=== PATIENT | female | born 1965 | race American Indian/Alaskan Native ===

== ENCOUNTER 2022-05-16 21:48 | Inpatient (IN) | payer MEDICARE ==
--- NOTE | 2022-05-16 23:34 | Emergency Department Report ---
ED General Adult HPI - General Chief complaint: Chest Pain Stated complaint: CHEST PAIN/EMESIS Time Seen by Provider: 05/16/22 23:22 Source: patient, EMS (Verbal report received from emergency medical services. EMS documentation not available at time of chart dictation ), RN notes reviewed Mode of arrival: Stretcher Limitations: No Limitations - History of Present Illness Initial comments: The patient was evaluated in the emergency department for symptoms described in the history of present illness. He/she was evaluated in the context of the global COVID-19 pandemic, which necessitated consideration that the patient might be at risk for infection with the virus that causes COVID-19. Institutional protocols and algorithms that pertain to the evaluation of patients at risk for COVID-19 are in a state of rapid change based on information released by regulatory bodies including the CDC and federal and state organizations. These policies and algorithms were followed during the patient's care in the emergency department. Please note that these policies, procedures and recommendations changed on a rapid basis. This is a 56-year-old female with a history of hypertension, tobacco and marijuana abuse, who is COVID-19 vaccinated but not boosted. She is brought to the hospital by emergency medical services. The patient complains of 1 month of central chest wall pain, with cough, wheezing and shortness of breath. This evening, she started to develop abdominal cramping, with nausea and vomiting. She denies dysuria. She denies fever. She denies travel, surgery, immobilization, DVT and pulmonary embolism risk factors. There is no personal family history of DVT, PE, GA, ACS. She was given aspirin by EMS, but otherwise has not taken aspirin within the past 7 days. -: Gradual, days(s), week(s), month(s) Location: chest, abdomen Radiation: back (Right upper quadrant abdominal pain radiates to the back) Quality: other (Chest wall pain is aching) Consistency: constant (Chest wall pain is constant), intermittent (Abdominal pain is intermittent) Improves with: rest Worsens with: movement - Related Data Allergies Allergy/AdvReac Type Severity Reaction Status Date / Time No Known Allergies Allergy Unverified 05/16/22 21:55 ED Review of Systems ROS: Stated complaint: CHEST PAIN/EMESIS Other details as noted in HPI Constitutional: weakness. denies: fever ENT: congestion Respiratory: cough Cardiovascular: chest pain (Chest wall pain) Gastrointestinal: abdominal pain, nausea, vomiting Genitourinary: denies: dysuria Musculoskeletal: back pain Neurological: weakness Hematological/Lymphatic: denies: easy bleeding ED Past Medical Hx - Past Medical History Previous Medical History?: Yes Hx Hypertension: Yes Hx COPD: Yes - Surgical History Past Surgical History?: No - Social History Smoking Status: Current Every Day Smoker Substance Use Type: None ED Physical Exam - General Limitations: No Limitations General appearance: alert, anxious, obese - Head Head exam: Present: atraumatic, normocephalic - Eye Eye exam: Present: normal appearance, EOMI. Absent: nystagmus - ENT ENT exam: Present: normal exam, normal orophraynx, mucous membranes moist, normal external ear exam - Neck Neck exam: Present: normal inspection, full ROM. Absent: tenderness, meningismus - Respiratory Respiratory exam: Present: wheezes, rhonchi, chest wall tenderness. Absent: respiratory distress - Cardiovascular Cardiovascular Exam: Present: regular rate, normal rhythm, normal heart sounds. Absent: bradycardia, tachycardia, irregular rhythm, systolic murmur, diastolic murmur, rubs, gallop - GI/Abdominal GI/Abdominal exam: Present: soft, tenderness, other (There is right upper quadrant tenderness). Absent: distended, guarding, rebound, rigid, pulsatile mass - Extremities Exam Extremities exam: Present: normal inspection, full ROM, pedal edema (1+ edema in the bilateral lower extremity), other (2+ pulses noted in the bilateral upper and lower extremities. There is no palpable cord. negative Homans sign. Muscular compartments are soft. The pelvis is stable.). Absent: calf tenderness - Back Exam Back exam: Present: normal inspection, CVA tenderness (R). Absent: tenderness, CVA tenderness (L), muscle spasm, paraspinal tenderness, vertebral tenderness - Neurological Exam Neurological exam: Present: alert, oriented X3, other (No facial droop. Tongue midline. Extraocular movements intact bilaterally. Facial sensation intact to light touch in V1, V2, V3 distribution bilaterally. 5 and a 5 strength in 4 extremities. Sensation intact to light touch in 4 extremities.). Absent: motor sensory deficit - Psychiatric Psychiatric exam: Present: normal affect, normal mood - Skin Skin exam: Present: warm, dry, intact, normal color. Absent: rash ED Course Vital Signs 05/16/22 05/16/22 05/16/22 21:55 22:03 23:32 Temperature 99.3 F Pulse Rate Pulse Rate [ 80 Bilateral] Respiratory 18 Rate Respiratory 20 Rate [Bilateral ] Blood Pressure Blood Pressure [Left] O2 Sat by Pulse 96 Oximetry 05/16/22 05/16/22 05/16/22 23:34 23:45 23:54 Temperature Pulse Rate 57 L 69 70 Pulse Rate [ Bilateral] Respiratory 16 18 20 Rate Respiratory Rate [Bilateral ] Blood Pressure 120/70 116/74 Blood Pressure 116/74 [Left] O2 Sat by Pulse 96 94 94 Oximetry 05/17/22 05/17/22 05/17/22 00:01 00:15 00:30 Temperature Pulse Rate 65 77 Pulse Rate [ Bilateral] Respiratory 17 21 Rate Respiratory Rate [Bilateral ] Blood Pressure 120/70 113/65 Blood Pressure [Left] O2 Sat by Pulse 95 97 94 Oximetry 05/17/22 05/17/22 05/17/22 00:31 00:45 01:01 Temperature Pulse Rate 79 60 65 Pulse Rate [ Bilateral] Respiratory 22 13 18 Rate Respiratory Rate [Bilateral ] Blood Pressure 120/70 116/77 116/77 Blood Pressure [Left] O2 Sat by Pulse 96 98 98 Oximetry 05/17/22 05/17/22 05/17/22 01:16 01:37 01:45 Temperature Pulse Rate 67 85 80 Pulse Rate [ Bilateral] Respiratory 16 22 19 Rate Respiratory Rate [Bilateral ] Blood Pressure 116/77 116/77 116/79 Blood Pressure [Left] O2 Sat by Pulse 96 98 96 Oximetry 05/17/22 05/17/22 05/17/22 02:01 02:15 02:31 Temperature Pulse Rate 81 78 78 Pulse Rate [ Bilateral] Respiratory 18 15 17 Rate Respiratory Rate [Bilateral ] Blood Pressure 116/77 124/79 124/79 Blood Pressure [Left] O2 Sat by Pulse 96 95 92 Oximetry 05/17/22 05/17/22 05/17/22 02:45 03:01 03:15 Temperature Pulse Rate 81 75 77 Pulse Rate [ Bilateral] Respiratory 15 14 21 Rate Respiratory Rate [Bilateral ] Blood Pressure 120/74 120/74 125/82 Blood Pressure [Left] O2 Sat by Pulse 94 94 94 Oximetry 05/17/22 05/17/22 03:31 03:38 Temperature 98 F Pulse Rate 74 Pulse Rate [ Bilateral] Respiratory 19 Rate Respiratory Rate [Bilateral ] Blood Pressure 125/82 Blood Pressure [Left] O2 Sat by Pulse 95 Oximetry - Reevaluation(s) Reevaluation #1: 05/17/22 00:06 Differential diagnosis, include not limited to: COPD exacerbation, CHF exacerbation, costochondritis, cholecystitis, colitis, diverticulitis, renal co lic, urinary tract infection, pancreatitis, coronary artery disease, marijuana abuse, tobacco abuse Assessment and plan: 56-year-old female with 1 month of chest wall pain, associate with cough, wheezing, today with abdominal pain, and nausea and vomiting. EKG nonspecifically abnormal, but assuming troponin negative x1, in the context of days and weeks of symptoms, myocardial infarction is ruled out with 1 set of troponins and cardiac enzymes. The patient denies DVT and pulmonary embolism risk factors, and she is low risk by Wells criteria for pulmonary embolism. Patient however is moderate risk for major adverse cardiac event as per heart score She is tender in her right upper quadrant, as well as right CVA We will treat her with albuterol, Atrovent, pain medication, nausea medication, steroids, and low-dose diuretics. We will obtain x-ray of the abdomen and chest, as well as a right upper quadrant ultrasound. We will obtain appropriate laboratory studies, including troponin, D-dimer, and urinalysis. We will reassess after initial data points. I discussed this plan of care with the patient. She is agreeable to the plan of care 05/17/22 00:07 05/17/22 00:09 05/17/22 01:59 Patient reassessed. She is feeling improved. Right upper quadrant ultrasound negative. D-dimer elevated, therefore CT scan chest obtained. Shows emphysematous changes. CT scan abdomen pelvis pending. Urinalysis not consistent with UA. Reevaluation #2: 05/17/22 02:00 Patient received aspirin via EMS 05/17/22 02:09 CT scan abdomen pelvis negative for acute findings. Admit patient to the medical service under the care of Dr. Rachna Vee, admitting diagnosis acute COPD exacerbation, acute chest pain, and presumed right-sided congestive heart failure, with probable preserved ejection fraction. Patient agreeable to admission and hospitalization. ED Medical Decision Making - Lab Data Result diagrams: 05/16/22 23:45 05/17/22 03:52 Vital Signs 05/16/22 05/16/22 05/16/22 21:55 23:32 23:34 Temperature 99.3 F Pulse Rate 57 L Respiratory 18 16 Rate Blood Pressure Blood Pressure 116/74 [Left] O2 Sat by Pulse 96 96 Oximetry 05/16/22 23:45 Temperature Pulse Rate 69 Respiratory 18 Rate Blood Pressure 120/70 Blood Pressure [Left] O2 Sat by Pulse 94 Oximetry Lab Results 05/16/22 Range/Units 23:45 WBC 6.9 (4.5-11.0) K/mm3 RBC 4.01 (3.65-5.03) M/mm3 Hgb 11.8 (10.1-14.3) gm/dl Hct 36.9 (30.3-42.9) % MCV 92 (79-97) fl MCH 30 (28-32) pg MCHC 32 (30-34) % RDW 14.5 (13.2-15.2) % Plt Count 382 (140-440) K/mm3 Lymph % (Auto) 34.6 (13.4-35.0) % Logan % (Auto) 10.7 H (0.0-7.3) % Eos % (Auto) 1.6 (0.0-4.3) % Baso % (Auto) 1.1 (0.0-1.8) % Lymph # (Auto) 2.4 (1.2-5.4) K/mm3 Logan # (Auto) 0.7 (0.0-0.8) K/mm3 Eos # (Auto) 0.1 (0.0-0.4) K/mm3 Baso # (Auto) 0.1 (0.0-0.1) K/mm3 Seg Neutrophils % 52.0 (40.0-70.0) % Seg Neutrophils # 3.6 (1.8-7.7) K/mm3 - EKG Data -: EKG Interpreted by Ca EKG shows normal: sinus rhythm Rate: normal - EKG Data When compared to previous EKG there are: previous EKG unavailable 05/17/22 00:06 The EKG is interpreted at 23: 26 Sinus rhythm, rate 62 bpm. Normal axis, normal P wave axis, poor R wave progr ession, AK interval 214 ms. QTC 4 6 0 ms. Abnormal EKG. Not a STEMI - Radiology Data Radiology results: pending, report reviewed, image reviewed Abdomen with chest INDICATION: Abdominal pain IMPRESSION: Mild increased pulmonary vascularity. No pneumothorax is seen. Nonspecific bowel gas pattern. No large calcifications. No free air. Signer Name: Alexandro Coleman MD Signed: 05/16/2022 11:06 PM Workstation Name: [employer] CTA CHEST WITH CONTRAST INDICATION / CLINICAL INFORMATION: Acute chest pain and shortness of breath. TECHNIQUE: Axial CT images were obtained through the chest after injection of IV contrast. 3 plane MIP and/or 3D reconstructions were produced. All CT scans at this location are performed using CT dose reduction for ALARA by means of automated exposure control. COMPARISON: None available. FINDINGS: The pulmonary arteries are patent without filling defect or evidence for PTE. Mild soft tissue proximal right hilum could represent mild prominent nodes. Mild coronary artery calcification. No pericardial effusion. Emph ysematous changes seen within the lungs with interstitial thickening lower lobe atelectasis is identified. No dominant nodular mass is seen. ADDITIONAL FINDINGS: None. UPPER ABDOMEN: Fatty infiltration of the liver. SKELETAL STRUCTURES: No significant osseous abnormality. IMPRESSION: 1. No CT evidence for pulmonary embolism. 2. Diffuse emphysematous change. Chronic interstitial change with interstitial thickening and chronic interstitial disease in bilateral lungs. No dominant nodule or mass. 3. Fatty infiltration of the liver. Signer Name: Alexandro Coleman MD Signed: 05/17/2022 12:43 AM Workstation Name: [employer] abdominal ultrasound INDICATION: Epigastric pain and chest pain FINDINGS: There is enlarged measuring 19.2 cm with increased echogenicity. Aorta and IVC visualized appears normal. No gallbladder wall thickening or pericholecystic fluid. Common bile measures 3.5 mm. Right kidney appears normal. IMPRESSION: Hepatomegaly with fatty infiltration. Signer Name: Alexandro Coleman MD Signed: 05/16/2022 11:59 PM Workstation Name: [employer] CT ABDOMEN AND PELVIS WITH CONTRAST HISTORY: Right upper quadrant abdominal pain that radiates. COMPARISON: None. TECHNIQUE: CT images of the abdomen and pelvis were obtained following administration of intravenous contrast. All CT scans at this location are performed using CT dose reduction for ALARA by means of automated exposure control. CONTRAST: 100 ml of intravenous contrast administered. FINDINGS: Abdomen/pelvis: The liver is enlarged with diffuse fatty infiltration. Spleen, adrenal glands, pancreas and gallbladder appear normal. Thickening of the distal esophagus. Bilateral kidneys are unremarkable. Portal vein is patent. Appendix appears normal. No focal inflammatory changes seen in the abdomen. No dominant adenopathy IMPRESSION: 1. Hepatomegaly with hepatic steatosis 2. No focal inflammatory change in the abdomen. Small umbilical hernia containing fat Signer Name: Alexandro Coleman MD Signed: 05/17/2022 12:55 AM Workstation Name: [id number] Critical care attestation.: If time is entered above; I have spent that time in minutes in the direct care of this critically ill patient, excluding procedure time. ED Disposition Clinical Impression: Acute chest pain, Acute abdominal pain, COPD with acute exacerbation, Lower extremity edema Disposition: 09 ADMITTED INPATIENT Is pt being admited?: Yes Does the pt Need Aspirin: No Condition: Good Heart Score - HEART Score History: Slightly suspicious EKG: Non-specific Age: 45-65 Risk factors: > 3 risk factors or hx of atherosclerotic disease (Hypertension, obesity, tobacco use, marijuana) Troponin: < normal limit HEART Score: 4 - EKG Read Time Time EKG Completed: 23:26 EKG Read Time: 23:26 - Critical Actions Critical Actions: 4-6 pts:12-16.6% risk of adverse cardiac event. Should be admitted
[2022-05-16] MEDS ORDERED: MORPHINE 4 MG/1 ML INJ IV ONE (23:54)
[2022-05-16] MEDS ORDERED: IPRATROPIUM 0.02% NEBU 2.5 ML IH ONE (23:54)
[2022-05-16] MEDS ORDERED: ONDANSETRON 4 MG/2 ML INJ IV ONE (23:54)
[2022-05-16] MEDS ORDERED: methylPREDNISolone Sod Succinate 125 MG/2 ML INJ IV ONE (23:54)
[2022-05-16] MEDS ORDERED: FUROSEMIDE 20 MG/2 ML INJ IV ONE (23:55)
[2022-05-16 23:56] LABS: Basophils # (Auto) 0.1 K/mm3 (0.0-0.1); Basophils % (Auto) 1.1 % (0.0-1.8); Eosinophils # (Auto) 0.1 K/mm3 (0.0-0.4); Eosinophils % (Auto) 1.6 % (0.0-4.3); Hematocrit 36.9 % (30.3-42.9); Hemoglobin 11.8 gm/dl (10.1-14.3); Lymphocytes # (Auto) 2.4 K/mm3 (1.2-5.4); Lymphocytes % (Auto) 34.6 % (13.4-35.0); Mean Corpuscular HGB Conc 32 % (30-34); Mean Corpuscular Volume 92 fl (79-97); Monocytes # (Auto) 0.7 K/mm3 (0.0-0.8); Monocytes % (Auto) 10.7 % (0.0-7.3); Platelet Count 382 K/mm3 (140-440); Red Blood Count 4.01 M/mm3 (3.65-5.03); Red Cell Distribution Width 14.5 % (13.2-15.2)
[2022-05-17] MEDS ORDERED: ALBUTEROL 2.5 MG/3 ML NEBU IH ONE ×2 (00:08)
--- NOTE | 2022-05-17 00:10 | XRay Report ---
Abdomen with chest INDICATION: Abdominal pain IMPRESSION: Mild increased pulmonary vascularity. No pneumothorax is seen. Nonspecific bowel gas alize hillary. No large calcifications. No free air. Signer Name: Alexandro Coleman MD Signed: 05/17/2022 12:06 AM Workstation Name: [id number]
[2022-05-17 00:21] LABS: INR 0.95 (0.87-1.13); Partial Thromboplastin Time 29.5 Sec. (24.2-36.6)
[2022-05-17 00:27] LABS: Alanine Aminotransferase 43 units/L (7-56); Albumin 3.7 g/dL (3.9-5); BUN/Creatinine Ratio 21; Blood Urea Nitrogen 19 mg/dL (7-17); Calcium 9.1 mg/dL (8.4-10.2); Hemolysis Index 3
--- NOTE | 2022-05-17 01:04 | Ultrasound Report ---
Limited abdominal ultrasound INDICATION: Epigastric pain and chest pain FINDINGS: There is enlarged measuring 19.2 cm with increased echogenicity. Aorta and IVC visualized a ppears normal. No gallbladder wall thickening or pericholecystic fluid. Common bile measures 3.5 mm. Right kidney appears normal. IMPRESSION: Hepatomegaly with fatty infiltration. Signer Name: Alexandro Coleman MD Signed: 05/17/2022 12:59 AM Workstation Name: [email or web address]
[2022-05-17 01:26] LABS: Color,Urine Colorless (Yellow)
[2022-05-17 01:30] LABS: WBC,Urine < 1.0 /HPF (0.0-6.0)
--- NOTE | 2022-05-17 01:47 | Cat Scan Report ---
CTA CHEST WITH CONTRAST INDICATION / CLINICAL INFORMATION: Acute chest pain and shortness of breath. TECHNIQUE: Axial CT images were obtained through the chest after injection of IV contrast. 3 plane DC P and/or 3D reconstructions were produced. All CT scans at this location are performed using CT dose reduction for ALARA by means of automated exposure control. COMPARISON: None available. FINDINGS: The pulmonary arteries are patent without filling defect or evidence for PTE. Mild soft tissue proxim al right hilum could represent mild prominent nodes. Mild coronary artery calcification. No pericardi al effusion. Emphysematous changes seen within the lungs with interstitial thickening lower lobe atel ectasis is identified. No dominant nodular mass is seen. ADDITIONAL FINDINGS: None. UPPER ABDOMEN: Fatty infiltration of the liver. SKELETAL STRUCTURES: No significant osseous abnormality. IMPRESSION: 1. No CT evidence for pulmonary embolism. 2. Diffuse emphysematous change. Chronic interstitial change with interstitial thickening and chronic interstitial disease in bilateral lungs. No dominant nodule or mass. 3. Fatty infiltration of the liver. Signer Name: Alexandro Coleman MD Signed: 05/17/2022 1:43 AM Workstation Name: [id number]
--- NOTE | 2022-05-17 01:59 | Cat Scan Report ---
CT ABDOMEN AND PELVIS WITH CONTRAST HISTORY: Right upper quadrant abdominal pain that radiates. COMPARISON: None. TECHNIQUE: CT images of the abdomen and pelvis were obtained following administration of intravenous contrast. All CT scans at this location are performed using CT dose reduction for ALARA by means of automated exposure control. CONTRAST: 100 ml of intravenous contrast administered. FINDINGS: Abdomen/pelvis: The liver is enlarged with diffuse fatty infiltration. Spleen, adrenal glands, pancr eas and gallbladder appear normal. Thickening of the distal esophagus. Bilateral kidneys are unremark able. Portal vein is patent. Appendix appears normal. No focal inflammatory changes seen in the abdom en. No dominant adenopathy IMPRESSION: 1. Hepatomegaly with hepatic steatosis 2. No focal inflammatory change in the abdomen. Small umbilical hernia containing fat Signer Name: Alexandro Coleman MD Signed: 05/17/2022 1:55 AM Workstation Name: [email or web address]
[2022-05-17] MEDS ORDERED: DOXYCYCLINE 100 MG CAP PO ONE (02:00)
[2022-05-17] MEDS ORDERED: ACETAMINOPHEN 325 MG TAB PO PRN ×3 (02:27→02:45)
[2022-05-17] MEDS ORDERED: MORPHINE 4 MG/1 ML INJ IV PRN ×2 (02:27→02:45)
[2022-05-17] MEDS ORDERED: ONDANSETRON 4 MG/2 ML INJ IV PRN ×2 (02:27→02:45)
[2022-05-17] MEDS ORDERED: MORPHINE 2 MG/1 ML INJ IV PRN ×3 (02:27→02:45)
[2022-05-17] MEDS ORDERED: NITROGLYCERIN 0.4 MG TAB SUBL SL PRN (02:45)
[2022-05-17] MEDS ORDERED: MAGNESIUM HYDROXIDE (MOM) ORAL LIQD UDC PO PRN (02:45)
[2022-05-17] MEDS ORDERED: traMADol 50 MG TAB PO PRN (02:45)
--- NOTE | 2022-05-17 03:41 | History and Physical Report ---
History of Present Illness Date of examination: 05/17/22 Date of admission: 05/17/2022 Chief complaint: Chest Pain History of present illness: 56-year-old female with known history of hypertension, marijuana and tobacco abuse presenting to the emergency room today via EMS for evaluation of chest pain and shortness of breath. She also indicates that she has been having some wheezing. Patient also indicates that she has had some nausea and vomiting with associated abdominal cramping. She denies any hematuria or dysuria. She denies any fever or chills. Patient denies any sick contacts and no recent travel. Denies any contact with anyone with COVID-19. Patient also indicates that the chest pain has been intermittent was initially in the substernal region and later moved to the left side of her chest just below the left breast. Chest pain is made worse on exertion and improves upon resting. Upon arrival in the emergency room patient was found to be wheezing and had oxygen saturation of about 92% on room air. Work-up in the emergency room today, lab reveals D-dimer of 741, sodium of 133, BUN of 19 and creatinine of 0.8. Urinalysis essentially negative. Chest CT shows diffuse emphysematous changes Past History Past Medical History: COPD, hypertension Past Surgical History: No surgical history Social history: smoking Family history: no significant family history Medications and Allergies Allergies Allergy/AdvReac Type Severity Reaction Status Date / Time No Known Allergies Allergy Unverified 05/16/22 21:55 Active Meds: Active Medications Acetaminophen (Acetaminophen 325 Mg Tab) 650 mg PO Q4H PRN PRN Reason: Pain MILD(1-3)/Fever >100.5/[place] Acetaminophen (Acetaminophen 325 Mg Tab) 650 mg PO Q4H PRN PRN Reason: Pain MILD(1-3)/Fever >100.5/[place] Acetaminophen (Acetaminophen 325 Mg Tab) 650 mg PO Q6H PRN PRN Reason: Pain, Mild (1-3) Albuterol/Ipratropium (Ipratropium/Albuterol Sulfate 3 Ml Ampul.Neb) 1 ampul IH Q4HRT ISAAC Aspirin (Aspirin Ec 325 Mg Tab) 325 mg PO QDAY ISAAC Magnesium Hydroxide (Magnesium Hydroxide (Mom) Oral Liqd Udc) 30 ml PO Q4H PRN PRN Reason: Constipation Methylprednisolone Sodium Succinate (Methylprednisolone Sod Succinate 40 Mg/1 Ml Inj) 40 mg IV Q8HR ISAAC Morphine Sulfate (Morphine 2 Mg/1 Ml Inj) 2 mg IV Q4H PRN PRN Reason: Pain, Moderate (4-6) Morphine Sulfate (Morphine 2 Mg/1 Ml Inj) 2 mg IV Q4H PRN PRN Reason: Pain, Moderate (4-6) Morphine Sulfate (Morphine 4 Mg/1 Ml Inj) 4 mg IV Q4H PRN PRN Reason: Pain , Severe (7-10) Morphine Sulfate (Morphine 4 Mg/1 Ml Inj) 2 mg IV Q5MIN PRN PRN Reason: Chest Pain unrelieved by NTG Nitroglycerin (Nitroglycerin 0.4 Mg Tab Subl) 0.4 mg SL Q5M PRN PRN Reason: Chest Pain Ondansetron HCl (Ondansetron 4 Mg/2 Ml Inj) 4 mg IV Q8H PRN PRN Reason: Nausea And Vomiting Ondansetron HCl (Ondansetron 4 Mg/2 Ml Inj) 4 mg IV Q8H PRN PRN Reason: Nausea And Vomiting Sodium Chloride (Sodium Chloride 0.9% 10 Ml Flush Syringe) 10 ml IV BID ISAAC Sodium Chloride (Sodium Chloride 0.9% 10 Ml Flush Syringe) 10 ml IV PRN PRN PRN Reason: LINE FLUSH Sodium Chloride (Sodium Chloride 0.9% 10 Ml Flush Syringe) 10 ml IV BID ISAAC Sodium Chloride (Sodium Chloride 0.9% 10 Ml Flush Syringe) 10 ml IV PRN PRN PRN Reason: LINE FLUSH Sodium Chloride (Sodium Chloride 0.9% 10 Ml Flush Syringe) 10 ml IV PRN PRN PRN Reason: LINE FLUSH Tramadol HCl (Tramadol 50 Mg Tab) 50 mg PO Q6H PRN PRN Reason: Pain, Moderate (4-6) Review of Systems Constitutional: no fever, no chills Ears, nose, mouth and throat: no nasal congestion, no sore throat Cardiovascular: chest pain, no palpitations Respiratory: shortness of breath, wheezing, no cough Gastrointestinal: no abdominal pain, no nausea, no vomiting, no diarrhea Genitourinary Female: no flank pain, no dysuria, no hematuria Musculoskeletal: no neck pain, no low back pain Integumentary: no rash, no pruritis Neurological: no headaches, no confusion Psychiatric: no anxiety, no depression Endocrine: no polyphagia, no polydipsia, no polyuria, no nocturia Exam - Constitutional Vitals: Temp Pulse Resp BP Pulse Ox 99.3 F 78 15 124/79 95 05/16/22 21:55 05/17/22 02:15 05/17/22 02:15 05/17/22 02:15 05/17/22 02:15 General appearance: Present: no acute distress - EENT Eyes: Present: PERRL, EOM intact. Absent: scleral icterus ENT: hearing intact, clear oral mucosa, dentition normal - Neck Neck: Present: supple, normal ROM - Respiratory Respiratory effort: normal Respiratory: bilateral: wheezing - Cardiovascular Rhythm: regular Heart Sounds: Present: S1 & S2. Absent: gallop, systolic murmur, diastolic murmur, rub, click - Extremities Extremities: no ischemia Extremity abnormal: edema (Trace willow.lower extremity edema) Peripheral Pulses: within normal limits - Abdominal General gastrointestinal: Present: soft, non-tender, non-distended, normal bowel sounds. Absent: mass - Integumentary Integumentary: Present: clear, warm, dry, normal turgor. Absent: rash - Musculoskeletal Musculoskeletal: strength equal bilaterally - Psychiatric Psychiatric: appropriate mood/affect, intact judgment & insight, memory intact, cooperative - Neurologic Neurologic: CNII-XII intact, no focal deficits, moves all extremities HEART Score - HEART Score History: Moderately suspicious EKG: Non-specific Age: 45-65 Risk factors: > 3 risk factors or hx of atherosclerotic disease (Hypertension, obesity, tobacco use, marijuana) Troponin: Troponin T < 0.010 ng/mL (0.00-0.029) 05/16/22 23:45 Troponin: < normal limit HEART Score: 5 - Critical Actions Critical Actions: 4-6 pts:12-16.6% risk of adverse cardiac event. Should be admitted Results - Labs CBC & Chem 7: 05/16/22 23:45 05/17/22 03:52 Labs: Abnormal lab results 05/16/22 05/16/22 05/17/22 Range/Units 23:45 23:45 00:07 [place] % (Auto) 10.7 H (0.0-7.3) % D-Dimer 741.19 H (0-234) ng/mlDDU Sodium 133 L (137-145) mmol/L Chloride 95.9 L (98-107) mmol/L BUN 19 H (7-17) mg/dL AST 65 H (5-40) units/L Alkaline Phosphatase 156 H (35-129) units/L Albumin 3.7 L (3.9-5) g/dL Assessment and Plan Assessment: 1. Chest pain 2. COPD with exacerbation 3. CHF Plan: 1. Patient admitted and placed on telemetry. We will check serial cardiac enzymes. 2. We will place on nebulizing treatments and steroids for COPD. 3. We will resume routine home medications and monitor vital signs closely. 4. Patient will be scheduled for stress test and echocardiogram. 5. Consult placed to cardiology for evaluation and recommendations. DVT prophylaxis: Subcutaneous heparin CODE STATUS: Full code
[2022-05-17] MEDS: IPRATROPIUM/ALBUTEROL SULFATE 3 ML AMPUL.NEB IH SCH ×6 (04:05→20:27)
[2022-05-17 04:29] LABS: BUN/Creatinine Ratio 24; Blood Urea Nitrogen 19 mg/dL (7-17); Calcium 9.3 mg/dL (8.4-10.2); Hemolysis Index 2
[2022-05-17] MEDS: methylPREDNISolone Sod Succinate 40 MG/1 ML INJ IV SCH ×3 (05:28→21:12)
[2022-05-17] MEDS ORDERED: REGADENOSON 0.4 MG/5 ML INJ IV ONE (08:35)
--- NOTE | 2022-05-17 09:40 | Electrocardiograph Report ---
[facility] Test Date: 2022-05-16 Test Time: 23:26:41 Pat Name: RICHARD RAMIREZ Department: Room: A384 1 Gender: F Traveling Buyer: COLBY : 1965 Requested By: DESI OSHEA Order Number: [id number] Reading MD: Corrine Morejon Measurements Intervals [place] Rate: 62 P: 61 [place]: 214 QRS: 81 QRSD: 91 T: 60 QT: 453 QTc: 460 Interpretive Statements Sinus rhythm Prolonged [place] interval Low voltage, precordial leads No previous ECG available for comparison Electronically Signed On 05-17-2022 9:40:18 EDT by Corrine Morejon
--- NOTE | 2022-05-17 09:41 | Electrocardiograph Report ---
[facility] Test Date: 2022-05-17 Test Time: 07:22:25 Pat Name: RICHARD RAMIREZ Department: Room: A384 1 Gender: F Sociology Instructor: KADI : 1965 Requested By: CHAI HAYES Order Number: [id number] Reading MD: Corrine Morejon Measurements Intervals [place] Rate: 65 P: 84 [place]: 208 QRS: 66 QRSD: 84 T: 72 QT: 462 QTc: 482 Interpretive Statements Sinus rhythm Borderline prolonged [place] interval Compared to ECG 05/16/2022 23:26:41 Electronically Signed On 05-17-2022 9:41:03 EDT by Corrine Morejon
--- NOTE | 2022-05-17 09:41 | Consultation ---
History of Present Illness Consult date: 05/17/22 Requesting physician: DELMY GAMING Consult reason: chest pain History of present illness: 56-year-old female with known history of hypertension, marijuana and tobacco abuse presenting to the emergency room today via EMS for evaluation of chest pain and shortness of breath. Patient says she has been having chest pain left- sided for the last 2months but last for the last few days more to the center of her chest. She also had some nausea associated with vomiting so she got concerned and came to the emergency room. Patient still has some chest pain central which is exacerbated by coughing and deep breaths. She she denies any shortness of breath orthopnea PND leg swelling palpitations. Past History Past Medical History: COPD, hypertension Past Surgical History: No surgical history Social history: smoking Family history: no significant family history Medications and Allergies Allergies Allergy/AdvReac Type Severity Reaction Status Date / Time No Known Allergies Allergy Unverified 05/16/22 21:55 Active Meds: Active Medications Acetaminophen (Acetaminophen 325 Mg Tab) 650 mg PO Q4H PRN PRN Reason: Pain MILD(1-3)/Fever >100.5/MCCORMICK Albuterol/Ipratropium (Ipratropium/Albuterol Sulfate 3 Ml Ampul.Neb) 1 ampul IH Q4HRT [facility] Last Admin: 05/17/22 08:40 Dose: 1 ampul Aspirin (Aspirin Ec 325 Mg Tab) 325 mg PO QDAY [facility] Heparin Sodium (Porcine) (Heparin 5,000 Unit/1 Ml Vial) 5,000 unit SUB-Q Q8HR [facility] Magnesium Hydroxide (Magnesium Hydroxide (Mom) Oral Liqd Udc) 30 ml PO Q4H PRN PRN Reason: Constipation Methylprednisolone Sodium Succinate (Methylprednisolone Sod Succinate 40 Mg/1 Ml Inj) 40 mg IV Q8HR [facility] Last Admin: 05/17/22 05:28 Dose: 40 mg Morphine Sulfate (Morphine 2 Mg/1 Ml Inj) 2 mg IV Q4H PRN PRN Reason: Pain, Moderate (4-6) Last Admin: 05/17/22 05:39 Dose: 2 mg Morphine Sulfate (Morphine 4 Mg/1 Ml Inj) 4 mg IV Q4H PRN PRN Reason: Pain , Severe (7-10) Morphine Sulfate (Morphine 2 Mg/1 Ml Inj) 2 mg IV Q5MIN PRN PRN Reason: Chest Pain unrelieved by NTG Nitroglycerin (Nitroglycerin 0.4 Mg Tab Subl) 0.4 mg SL Q5M PRN PRN Reason: Chest Pain Ondansetron HCl (Ondansetron 4 Mg/2 Ml Inj) 4 mg IV Q8H PRN PRN Reason: Nausea And Vomiting Sodium Chloride (Sodium Chloride 0.9% 10 Ml Flush Syringe) 10 ml IV BID ISAAC Sodium Chloride (Sodium Chloride 0.9% 10 Ml Flush Syringe) 10 ml IV PRN PRN PRN Reason: LINE FLUSH Tramadol HCl (Tramadol 50 Mg Tab) 50 mg PO Q6H PRN PRN Reason: Pain, Moderate (4-6) Review of Systems Constitutional: no weight loss, no weight gain Ears, nose, mouth and throat: no ear pain Cardiovascular: chest pain, shortness of breath, no palpitations, no edema, no syncope, no paroxysmal nocturnal dyspnea, no claudication, no leg edema Respiratory: cough, no excessive sputum Gastrointestinal: nausea, vomiting (Resolved) Musculoskeletal: no neck pain, no leg numbness/tingling Integumentary: no rash Neurological: no head injury Endocrine: no palpatations Hematologic/Lymphatic: no easy bruising Physical Examination Vital Signs Temp 99.3 F 05/16/22 21:55 General appearance: no acute distress HEENT: Positive: PERRL Neck: Positive: neck supple. Negative: JVD/HJR Cardiac: Positive: Reg Rate and Rhythm, S1/S2, Other (Chest is tender to palpation). Negative: Audible Murmur Lungs: Positive: Decreased Breath Sounds, Wheezes Neuro: Positive: Grossly Intact Abdomen: Positive: Soft Extremities: Absent: edema Results 05/16/22 23:45 05/17/22 03:52 Cardiac Enzymes 05/16/22 Range/Units 23:45 AST 65 H (5-40) units/L Coagulation 05/16/22 Range/Units 23:45 PT 13.7 (12.2-14.9) Sec. INR 0.95 (0.87-1.13) APTT 29.5 (24.2-36.6) Sec. CBC 05/16/22 Range/Units 23:45 WBC 6.9 (4.5-11.0) K/mm3 RBC 4.01 (3.65-5.03) M/mm3 Hgb 11.8 (10.1-14.3) gm/dl Hct 36.9 (30.3-42.9) % Plt Count 382 (140-440) K/mm3 Lymph # (Auto) 2.4 (1.2-5.4) K/mm3 [place] # (Auto) 0.7 (0.0-0.8) K/mm3 Eos # (Auto) 0.1 (0.0-0.4) K/mm3 Baso # (Auto) 0.1 (0.0-0.1) K/mm3 Comprehensive Metabolic Panel 05/16/22 05/17/22 Range/Units 23:45 03:52 Sodium 133 L 131 L (137-145) mmol/L Potassium 3.8 4.5 (3.6-5.0) mmol/L Chloride 95.9 L 96.1 L (98-107) mmol/L Carbon Dioxide 25 25 (22-30) mmol/L BUN 19 H 19 H (7-17) mg/dL Creatinine 0.9 0.8 (0.6-1.2) mg/dL Glucose 92 131 H (65-100) mg/dL Calcium 9.1 9.3 (8.4-10.2) mg/dL AST 65 H (5-40) units/L ALT 43 (7-56) units/L Alkaline Phosphatase 156 H (35-129) units/L Total Protein 7.4 (6.3-8.2) g/dL Albumin 3.7 L (3.9-5) g/dL - Imaging and Cardiology Stress echo: pending Echo: pending EKG interpretations - Telemetry EKG Rhythm: Sinus Rhythm AV and intraventricular conduction: 1 AV block Assessment and Plan - Patient Problems (1) Acute chest pain Current Visit: Yes Status: Acute Plan to address problem: Patient chest pain does not seem to be cardiac especially given her physical examination of tenderness to palpation. Patient is still concerned about [place] given her history of left-sided chest pain will do a treadmill nuclear stress test. She cannot receive Lexiscan because of wheezing. Echo reviewed, EF of 65 to 70% normal diastolic function no major valvular abnormalities. Exercise nuclear was done today, she was able to attain 80% of the maximal heart rate without any evidence of ischemia on EKG or SPECT images at submaximal str ess. I reviewed the CT scan of the chest which did not show any obvious coronary calcification. The likely kirkpatrick of coronary artery disease is low. The chest pain is likely costochondritis. We will schedule a follow-up at our clinic in 2 weeks to see if the symptoms are resolved. (2) Costochondritis Current Visit: Yes Status: Acute Plan to address problem: She will need a course of anti-inflammatory drugs for a week.
--- NOTE | 2022-05-17 10:04 | Progress Note ---
Assessment and Plan Assessment and plan: 56-year-old female with known history of hypertension, marijuana and tobacco abuse presenting to the emergency room via EMS for evaluation of chest pain, wheezing and shortness of breath. Patient also indicates that she has had some nausea and vomiting with associated abdominal cramping. Patient also indicates that the chest pain has been intermittent was initially in the substernal region and later moved to the left side of her chest just below the left breast. Chest pain is made worse on exertion and improves upon resting. Upon arrival in the emergency room patient was found to be wheezing and had oxygen saturation of about 92% on room air. Work-up in the emergency room revealed D-dimer of 741, sodium of 133, BUN of 19 and creatinine of 0.8. Urinalysis essentially negative. Chest CT shows diffuse emphysematous changes and no PE. Chest pain probably related to costochondritis Acute hypoxic respiratory failure Acute COPD exacerbation Hypertension Tobacco abuse. [id number] history 05/17/2022. Cardiology following. Follow-up stress test and echocardiogram. Continue steroids of Solu-Medrol 40 mg IV every 8 hours. Continue bronchodilators and nebulizer treatments. Patient with O2 saturations of 85%, tachypnea with respiratory rate of 22 and wheezing. History Interval history: No new issues overnight Hospitalist Physical - Constitutional Vitals: Temp Pulse Resp BP Pulse Ox 97.9 F 71 22 125/81 96 05/17/22 05:14 05/17/22 05:14 05/17/22 05:19 05/17/22 05:14 05/17/22 05:19 General appearance: Present: no acute distress - EENT Eyes: Present: PERRL, EOM intact ENT: hearing intact, clear oral mucosa, dentition normal - Neck Neck: Present: supple, normal ROM - Respiratory Respiratory effort: normal Respiratory: bilateral: CTA - Cardiovascular Rhythm: regular Heart Sounds: Present: S1 & S2. Absent: gallop, rub - Extremities Extremities: no ischemia, No edema, Full ROM - Abdominal General gastrointestinal: soft, non-tender, non-distended, normal bowel sounds - Integumentary Integumentary: Present: clear, warm, dry - Neurologic Neurologic: CNII-XII intact, moves all extremities HEART Score - HEART Score EKG: Non-specific Age: 45-65 Risk factors: > 3 risk factors or hx of atherosclerotic disease (Hypertension, obesity, tobacco use, marijuana) Troponin: Troponin T < 0.010 ng/mL (0.00-0.029) 05/16/22 23:45 Troponin: < normal limit - Critical Actions Critical Actions: 4-6 pts:12-16.6% risk of adverse cardiac event. Should be admitted Results - Labs CBC & Chem 7: 05/16/22 23:45 05/17/22 03:52 Labs: Laboratory Last Values WBC 6.9 K/mm3 (4.5-11.0) 05/16/22 23:45 RBC 4.01 M/mm3 (3.65-5.03) 05/16/22 23:45 Hgb 11.8 gm/dl (10.1-14.3) 05/16/22 23:45 Hct 36.9 % (30.3-42.9) 05/16/22 23:45 MCV 92 fl (79-97) 05/16/22 23:45 MCH 30 pg (28-32) 05/16/22 23:45 MCHC 32 % (30-34) 05/16/22 23:45 RDW 14.5 % (13.2-15.2) 05/16/22 23:45 Plt Count 382 K/mm3 (140-440) 05/16/22 23:45 Lymph % (Auto) 34.6 % (13.4-35.0) 05/16/22 23:45 [place] % (Auto) 10.7 % (0.0-7.3) H 05/16/22 23:45 Eos % (Auto) 1.6 % (0.0-4.3) 05/16/22 23:45 Baso % (Auto) 1.1 % (0.0-1.8) 05/16/22 23:45 Lymph # (Auto) 2.4 K/mm3 (1.2-5.4) 05/16/22 23:45 [place] # (Auto) 0.7 K/mm3 (0.0-0.8) 05/16/22 23:45 Eos # (Auto) 0.1 K/mm3 (0.0-0.4) 05/16/22 23:45 Baso # (Auto) 0.1 K/mm3 (0.0-0.1) 05/16/22 23:45 Seg Neutrophils % 52.0 % (40.0-70.0) 05/16/22 23:45 Seg Neutrophils # 3.6 K/mm3 (1.8-7.7) 05/16/22 23:45 PT 13.7 Sec. (12.2-14.9) 05/16/22 23:45 INR 0.95 (0.87-1.13) 05/16/22 23:45 APTT 29.5 Sec. (24.2-36.6) 05/16/22 23:45 D-Dimer 741.19 ng/mlDDU (0-234) H 05/17/22 00:07 Sodium 131 mmol/L (137-145) L 05/17/22 03:52 Potassium 4.5 mmol/L (3.6-5.0) 05/17/22 03:52 Chloride 96.1 mmol/L (98-107) L 05/17/22 03:52 Carbon Dioxide 25 mmol/L (22-30) 05/17/22 03:52 Anion Gap 14 mmol/L 05/17/22 03:52 BUN 19 mg/dL (7-17) H 05/17/22 03:52 Creatinine 0.8 mg/dL (0.6-1.2) 05/17/22 03:52 Estimated GFR > 60 ml/min 05/17/22 03:52 BUN/Creatinine Ratio 24 % 05/17/22 03:52 Glucose 131 mg/dL (65-100) H 05/17/22 03:52 Calcium 9.3 mg/dL (8.4-10.2) 05/17/22 03:52 Magnesium 2.00 mg/dL (1.7-2.3) 05/16/22 23:45 Total Bilirubin 0.20 mg/dL (0.1-1.2) 05/16/22 23:45 AST 65 units/L (5-40) H 05/16/22 23:45 ALT 43 units/L (7-56) 05/16/22 23:45 Alkaline Phosphatase 156 units/L (35-129) H 05/16/22 23:45 Total Creatine Kinase 64 units/L (30-135) 05/16/22 23:45 Troponin T < 0.010 ng/mL (0.00-0.029) 05/16/22 23:45 NT-Pro-B Natriuret Pep 122.8 pg/mL (0-900) 05/16/22 23:50 Total Protein 7.4 g/dL (6.3-8.2) 05/16/22 23:45 Albumin 3.7 g/dL (3.9-5) L 05/16/22 23:45 Albumin/Globulin Ratio 1.0 % 05/16/22 23:45 Lipase 27 units/L (13-60) 05/16/22 23:45 Urine Color Colorless (Yellow) 05/17/22 01:03 Urine Turbidity Clear (Clear) 05/17/22 01:03 Specific [place] (Man) 1.010 (1.003-1.030) 05/17/22 01:03 Ur Protein (Man) Negative mg/dL (Negative) 05/17/22 01:03 Ur Ketones (Man) Negative (Negative) 05/17/22 01:03 Urine Bilirubin (Man) Negative (Negative) 05/17/22 01:03 Urine WBC (Auto) < 1.0 /HPF (0.0-6.0) 05/17/22 01:03 Urine RBC (Auto) 1.0 /HPF (0.0-6.0) 05/17/22 01:03 U Epithel Cells (Auto) 1.0 /HPF (0-13.0) 05/17/22 01:03 Urine RBC (Manual) Negative (Negative) 05/17/22 01:03 Plasma/Serum Alcohol 0.04 % (0-0.07) 05/16/22 23:45 [place]/IV: Voiding Method Toilet Active Medications - Current Medications Current Medications: Generic Name Dose Route Start Last Admin Trade Name Freq PRN Reason Stop Dose Admin Acetaminophen 650 mg 05/17/22 02:27 Acetaminophen 325 Mg Tab PO Q4H PRN Pain MILD(1-3)/Fever >100.5/MCCORMICK Albuterol/Ipratropium 1 ampul 05/17/22 04:00 05/17/22 08:40 Ipratropium/Albuterol Sulfate 3 Ml Ampul.Neb IH 1 ampul Q4HRT ISAAC Administration Aspirin 325 mg 05/18/22 10:00 Aspirin Ec 325 Mg Tab PO QDAY ISAAC Heparin Sodium (Porcine) 5,000 unit 05/17/22 14:00 Heparin 5,000 Unit/1 Ml Vial SUB-Q Q8HR ISA[facility] Magnesium Hydroxide 30 ml 05/17/22 02:45 Magnesium Hydroxide (Mom) Oral Liqd Udc PO Q4H PRN Constipation Methylprednisolone Sodium Succinate 40 mg 05/17/22 06:00 05/17/22 05:28 Methylprednisolone Sod Succinate 40 Mg/1 Ml Inj IV 40 mg Q8HR ISAAC Administration Morphine Sulfate 2 mg 05/17/22 02:45 05/17/22 05:39 Morphine 2 Mg/1 Ml Inj IV 2 mg Q4H PRN Administration Pain, Moderate (4-6) Morphine Sulfate 4 mg 05/17/22 02:45 Morphine 4 Mg/1 Ml Inj IV Q4H PRN Pain , Severe (7-10) Morphine Sulfate 2 mg 05/17/22 02:45 Morphine 2 Mg/1 Ml Inj IV Q5MIN PRN Chest Pain unrelieved by NTG Nitroglycerin 0.4 mg 05/17/22 02:45 Nitroglycerin 0.4 Mg Tab Subl SL Q5M PRN Chest Pain Ondansetron HCl 4 mg 05/17/22 02:27 Ondansetron 4 Mg/2 Ml Inj IV Q8H PRN Nausea And Vomiting Sodium Chloride 10 ml 05/17/22 10:00 Sodium Chloride 0.9% 10 Ml Flush Syringe IV BID ISAAC Sodium Chloride 10 ml 05/17/22 02:45 Sodium Chloride 0.9% 10 Ml Flush Syringe IV PRN PRN LINE FLUSH Tramadol HCl 50 mg 05/17/22 02:45 Tramadol 50 Mg Tab PO Q6H PRN Pain, Moderate (4-6)
--- NOTE | 2022-05-17 13:42 | Nuclear Medicine Report ---
APPROVED REPORT Exam: Nuclear Stress Test Indication: Chest pain BMI: 0 Stress Test Details Stress Test: Exercise stress testing was performed using a Trung protocol. HR Resting HR: 71 bpm Max HR Achieved: 130 bpm Max Heart Rate (APMHR): 162 bpm Target HR (85% APMHR): 137 bpm % of APMHR: 80 Recovery HR: 79 bpm HR response to stress: Normal HR response to stress BP Resting BP: 105/70/ mmHg Max BP: 144/78 mmHg BP response to stress: Normal blood pressure response to stress. Unable to obtain blood pressure at peak ECG Resting ECG: Sinus Rhythm Stress ECG: Sinus Tachycardia ST Change: None Arrhythmia: None Recovery ECG: Sinus Rhythm Recovery ST Change: None Clinical Reason for Termination: Fatigue Stress Symptoms: Dyspnea Exercise duration: 4 min 17 sec Exercise capacity: 5.1 METs Angina Score: None Exercise was stopped as the patient unable to continue due to extreme fatigue and shortness of breath from her COPD. This is a submaximal stress test. NM EXAM: Myocardial Perfusion REST/STRESS Imaging Protocol: Rest Tc-99m/Stress Tc-99m 1 day Resting Data Rest SPECT myocardial perfusion imaging was performed in supine position 45 minutes following the intravenous injection of 10 mCi of Tc-99m Myoview. Time of rest injection: 1000 Date: 05/17/2022 Pharmacologic Stress Pharmacologic stress test was performed by injecting Regadenoson 0.4 mg IV push followed by the intravenous injection of 28 mCi of Tc-99m Myoview. Exercise Stress At peak stress, the patient was injected intravenously with 28mCi of Tc-99m Myoview. Time of stress injection: 1000 Date: 05/17/2022 Gated Stress SPECT was performed 30 minutes after stress injection. The images were gated to evaluate regional wall motion and calculate left ventricular ejection fraction. Study Data Post stress, the left ventricular ejection was 84%.. Perfusion Wall Motion Normal left ventricular size and function with no regional wall motion abnormalities. Nuclear Conclusion ECG Findings: negative for ischemia Clinical Findings: negative for ischemia Nuclear Findings: negative for ischemia Exercise Capacity: abnormal Left Ventricular Function: normal Risk Study: low The left ventricular ejection was 84%. Normal study. No scintigraphic evidence for myocardial ischemia or scar. The study is limited by submaximal stress test. Patient was able to achieve 80% of maximal heart rate. Poor exercise tolerance. Clinical correlation required.
[2022-05-17] MEDS: HEPARIN 5,000 UNIT/1 ML VIAL SUB-Q SCH ×2 (13:44→21:12)
--- NOTE | 2022-05-17 22:53 | Electrocardiograph Report ---
[facility] Test Date: 2022-05-17 Test Time: 11:15:20 Pat Name: RICHARD RAMIREZ Department: Room: A384 1 Gender: F Mobile Phone Salesperson: KADI : 1965 Requested By: CHAI HAYES Order Number: [id number] Reading MD: Corrine Morejon Measurements Intervals [place] Rate: 74 P: 74 CO: 201 QRS: 64 QRSD: 88 T: 44 QT: 418 QTc: 464 Interpretive Statements Sinus rhythm Probable left atrial enlargement Compared to ECG 05/17/2022 07:22:25 No significant changes Electronically Signed On 05-17-2022 22:52:44 EDT by Corrine Morejon
[2022-05-18 05:58] LABS: Basophils # (Auto) 0.1 K/mm3 (0.0-0.1); Basophils % (Auto) 0.6 % (0.0-1.8); Eosinophils % (Auto) 0.1 % (0.0-4.3); Hematocrit 35.1 % (30.3-42.9); Hemoglobin 11.1 gm/dl (10.1-14.3); Lymphocytes # (Auto) 2.4 K/mm3 (1.2-5.4); Lymphocytes % (Auto) 23.1 % (13.4-35.0); Mean Corpuscular HGB Conc 32 % (30-34); Mean Corpuscular Volume 93 fl (79-97); Monocytes % (Auto) 9.3 % (0.0-7.3); Platelet Count 353 K/mm3 (140-440); Red Blood Count 3.78 M/mm3 (3.65-5.03); Red Cell Distribution Width 14.7 % (13.2-15.2)
[2022-05-18] MEDS: HEPARIN 5,000 UNIT/1 ML VIAL SUB-Q SCH (06:04)
[2022-05-18] MEDS: methylPREDNISolone Sod Succinate 40 MG/1 ML INJ IV SCH (06:05)
[2022-05-18 06:08] LABS: Blood Urea Nitrogen 17 mg/dL (7-17); Calcium 9.2 mg/dL (8.4-10.2); Hemolysis Index 2
[2022-05-18 06:09] LABS: BUN/Creatinine Ratio 28
[2022-05-18] MEDS: IPRATROPIUM/ALBUTEROL SULFATE 3 ML AMPUL.NEB IH SCH ×2 (08:30→15:00)
--- NOTE | 2022-05-18 08:59 | Discharge Summary ---
Providers - Providers Date of Admission: 05/17/22 10:00 Date of discharge: 05/18/22 Attending physician: DELMY GAMING 05/17/22 Consult to Cardiac Rehabilitation [CONS] Routine Reason For Exam: Phase I Primary care physician: LUIS GONZALEZ Hospitalization Reason for admission: COPD exac, CP Condition: Good Hospital course: 56-year-old female with known history of hypertension, marijuana and tobacco abuse presenting to the emergency room via EMS for evaluation of chest pain, wheezing and shortness of breath. Patient also indicates that she has had some nausea and vomiting with associated abdominal cramping. Patient also indicates that the chest pain has been intermittent was initially in the substernal region and later moved to the left side of her chest just below the left breast. Chest pain is made worse on exertion and improves upon resting. Upon arrival in the emergency room patient was found to be wheezing and had oxygen saturation of about 92% on room air. Work-up in the emergency room revealed D-dimer of 741, sodium of 133, BUN of 19 and creatinine of 0.8. Urinalysis essentially negative. Chest CT shows diffuse emphysematous changes and no PE. The patient was admitted with diagnosis below: Chest pain probably related to costochondritis Acute hypoxic respiratory failure Acute COPD exacerbation Hypertension Tobacco abuse. [id number] history Hospital course: 05/17/2022. Cardiology following. Follow-up stress test and echocardiogram. Continue steroids of Solu-Medrol 40 mg IV every 8 hours. Continue bronchodilators and nebulizer treatments. Patient with O2 saturations of 85%, tachypnea with respiratory rate of 22 and wheezing. 05/18/2022. Cardiology reports that the chest pain does not seem to be cardiac in nature. Physical examination reveals tenderness upon palpation of the anterior chest. However, exercise stress test was done for completeness sake and she was able to attain 80% of the maximal heart rate without any evidence of ischemia on EKG or SPECT images at submaximal stress. Cardiology reviewed the CT scan of the chest which did not show any obvious coronary calcification. The likely kirkpatrick of coronary artery disease is low. The patient received IV steroids, bronchodilators/nebulizers for COPD exacerbation. Patient returned back to her baseline respiratory status and is felt to have seen maximal hospital benefit for discharge. Dedicated discharge time 32 minutes Disposition: HOME / SELF CARE / HOMELESS Final Discharge Diagnosis (Prints w/discharge instructions): Chest pain probably related to costochondritis. Acute hypoxic respiratory failure. Acute COPD exacerbation. Hypertension. Tobacco abuse. [id number] history Core Measure Documentation - Palliative Care Palliative Care/ Comfort Measures: Not Applicable - Core Measures Any of the following diagnoses?: none Exam - Constitutional Vitals: Temp Pulse Resp BP Pulse Ox 97.5 F L 88 18 116/69 97 05/17/22 13:46 05/18/22 08:30 05/18/22 08:30 05/17/22 21:10 05/18/22 08:40 General appearance: Present: no acute distress, well-nourished - EENT Eyes: Present: PERRL ENT: hearing intact, clear oral mucosa - Neck Neck: Present: supple, normal ROM - Respiratory Respiratory effort: normal Respiratory: bilateral: CTA - Cardiovascular Heart Sounds: Present: S1 & S2. Absent: rub, click - Extremities Extremities: pulses symmetrical, No edema Peripheral Pulses: within normal limits - Abdominal General gastrointestinal: Present: soft, non-tender, non-distended, normal bowel sounds Female genitourinary: Present: normal - Integumentary Integumentary: Present: clear, warm, dry - Musculoskeletal Musculoskeletal: gait normal, strength equal bilaterally - Psychiatric Psychiatric: appropriate mood/affect, intact judgment & insight - Neurologic Neurologic: CNII-XII intact, moves all extremities Plan Activity: advance as tolerated Weight Bearing Status: Weight Bear as Tolerated Diet: regular Follow up with: LUIS GONZALEZ MD [Primary Care Provider] - 7 Days LATONYA BONNER MD [Staff Physician] - 7 Days Prescriptions: Ipratropium (Nf) [Atrovent] 2 puff IH Q6HR PRN 30 Days inha PRN Reason: Wheezing Azithromycin 250 mg PO DAILY #5 tab methylPREDNISolone [Medrol 4MG DOSEPAK (21 tabs)] 4 mg PO DAILY #1
[2022-05-18 09:30] VITALS: BP 119/68
[2022-05-18] MEDS ORDERED: ASPIRIN EC 325 MG TAB PO SCH (10:00)
== END 2022-05-18 12:30 | disposition home or self-care (01) | DRG 205 ==
LOC: ED 21:48 → 3A 05-17 02:27 → OBSVTOIN 05-17 10:00
PROVIDERS: ADMIT Internal Medicine Geriatric Medicine; ATTEND Hospitalist
DX: M94.0 Chondrocostal junction syndrome [Tietze] (principal); J96.01 Acute respiratory failure with hypoxia; J44.1 Chronic obstructive pulmonary disease with (acute) exacerbation; F17.200 Nicotine dependence, unspecified, uncomplicated; I11.0 Hypertensive heart disease with heart failure; I50.9 Heart failure, unspecified
CPT/HCPCS: 36415; 71275; 74022; 74177; 76705; 78452; 80048; 80053; 80320; 81001; 82550; 83690; 83735; 83880; 84484; 85025; 85379; 85610; 85730; 93005; 93017; 93306; 94640; 94644; 94760; 99285; G0378; A9502; C8929; G0480; J1644; J1940; J2270; J2405; J2920; J2930; Q9967